=== PATIENT | female | born 1990 | race Caucasian/White ===

== ENCOUNTER → 2021-01-07 | Outpatient (CLI) | payer OTHER ==
--- NOTE | 2021-01-11 00:52 | ECWPNPC ---
PATIENT NAME: LAURA ADHIKARI : 1990 GENDER: FEMALE VISIT DATE: 01/07/2021 DISCHARGE DATE: 01/07/21 1401 VISIT LOCKED DATE TIME: PHYSICIAN: ALEJANDRA DENSON RESOURCE: ALEJANDRA DENSON REASON FOR APPOINTMENT 1. BACK PAIN HISTORY OF PRESENT ILLNESS DEPRESSION SCREENING: PHQ-2 (2015 EDITION) LITTLE INTEREST OR PLEASURE IN DOING THINGS?NOT AT ALL FEELING DOWN, DEPRESSED, OR HOPELESS?NOT AT ALL TOTAL SCORE0 GENERAL: PLEASANT 30-YEAR-OLD FEMALE REFERRED BY PRIMARY CARE, ADRIAN RODRIGUEZ TO EVALUATE CHRONIC TAILBONE PAIN. STATES THIS BEGAN AFTER DELIVERY OF HER CHILD 10 YEARS AGO. STATES IT WAS A TRAUMATIC DELIVERY. HAS BEEN HAVING CONSTANT TAILBONE PAIN OVER THE PAST FEW YEARS. HAS BEEN ON NARCOTIC PAIN MEDICATION FOR SEVERAL YEARS. STATES THAT PRIMARY CARE HAS BEEN WEANING HER OFF OF PAIN MEDICATION UNTIL SHE GETS SEEN BY PAIN MANAGEMENT FACILITY. CURRENTLY TAKING OXYCODONE 5/325 AND USING IT APPROXIMATELY HALF TABLET TO 1 TABLET A DAY AND HAS BEEN OUT OF MEDICATION FOR A FEW DAYS. TODAY WE HAD A LONG DISCUSSION ON DAILY USE OF NARCOTIC PAIN MEDICATIONS. ALSO DISCUSSED INTERVENTIONAL TREATMENT OPTIONS. PATIENT STATES SHE MAY BE RECEPTIVE TO THIS BUT RIGHT NOW IS QUITE FEARFUL OF NEEDLES. - - -. FALL RISK SCREENING: SCREENING : NO FALLS REPORTED IN THE LAST YEAR . PAIN SCREENING: PATIENT HAS A COMPLAINT OF ACUTE OR CHRONIC PAIN :YES LOCATION OF PAIN:UPPER BACK, LOW BACK TAILBONE PAIN INTENSITY OF PAIN (SCALE OF 1 TO 10):8 WHAT DOES YOUR PAIN FEEL LIKE:CONTINOUS, SHARP, STABBING, THROBBING, SHOOTING DURATION:CONTINOUS, CONSTANT, ALL DAY PAIN IS INCREASED BY:ACTIVITIES, PROLONGED STANDING PAIN IS DECREASED BY:OTHERS NOTHING HELPS NURSING NOTE: - - -. PAIN CENTER INTAKE QUESTIONS: DO YOU HAVE A HISTORY OF MRSA? :NO DO YOU TAKE A BLOOD THINNERS? :NO DO YOU HAVE ANY BLEEDING DISORDERS? :NO ANY NEW NUMBNESS OR WEAKNESS IN YOUR LEGS OR ARMS? :NO ANY PACEMAKER,DEFIBRILLATOR, OR DORSAL COLUMN STIMULATOR? :NO DO YOU HAVE ANY RASHES OR OPEN SORES? :NO ARE YOU ALLERGIC TO IV DYE? :NO ARE YOU DIABETIC? :NO ANY NEW PROBLEMS WITH YOUR MEDICATIONS? :NO HAVE YOU RECEIVED A VACCINE IN THE PAST 30 DAYS? :NO DO YOU PLAN TO RECEIVE A VACCINE IN THE NEXT 21 DAYS? :NO DO YOU NEED ANY PRESCRIPTION? :NO DO YOU TAKE ANY IMMUNOSUPPRESSIVE MEDICATIONS? :NO IS THERE A CHANCE YOU COULD BE ? :NO ARE YOU BREAST FEEDING? :NO CURRENT MEDICATIONS TAKING ATENOLOL 25 MG TABLET 1 TABLET ORALLY ONCE A DAY TAKING ESCITALOPRAM OXALATE 20 MG TABLET 1 TABLET ORALLY ONCE A DAY TAKING GABAPENTIN 300 MG CAPSULE 1 CAPSULE ORALLY ONCE A DAY TAKING LACTOBACILLUS - CAPSULE DIRECTED ORALLY 3,000 MMU DAILY TAKING LISINOPRIL 20 MG TABLET 1 TABLET ORALLY ONCE A DAY TAKING LISINOPRIL 5 MG TABLET 1 TABLET ORALLY ONCE A DAY TAKING MELOXICAM 15 MG TABLET 1 TABLET ORALLY ONCE A DAY TAKING MULTIVITAMIN - TABLET 1 TABLET ORALLY ONCE A DAY TAKING OMEPRAZOLE 40 MG CAPSULE DELAYED RELEASE 1 CAPSULE 30 MINUTES BEFORE MORNING MEAL ORALLY ONCE A DAY TAKING OXYCODONE-ACETAMINOPHEN 5-325 MG TABLET 1 TABLET NEEDED ORALLY EVERY 6 HRS NOT-TAKING DESOGESTREL-ETHINYL ESTRADIOL 0.15-0.02/0.01 MG (29/10) TABLET DIRECTED ORALLY MEDICATION LIST REVIEWED AND RECONCILED WITH THE PATIENT PAST MEDICAL HISTORY DEPRESSION ANXIETY DISORDER CHRONIC LOW BACK PAIN GERD- GASTROESOPHAGEAL REFLUX DISEASE SMOKER ALLERGIES NAPROXEN: SICK TO STOMACH - SIDE EFFECTS SURGICAL HISTORY NO SURGICAL HISTORY DOCUMENTED. FAMILY HISTORY FATHER: ALIVE MOTHER: ALIVE, BACK PAIN, HYPERTENSION DAUGHTER(S): ALIVE 1 DAUGHTER(S) - HEALTHY. FAMILY HISTORY- ALCOHOL AND ILLEGAL DRUGS, HIGH BLOOD PRESSURE, TWO HALF SISTER AND ONE HALF BROTHER. SOCIAL HISTORY GENERAL: TOBACCO USE ARE YOU A:CURRENT SMOKER ARE YOU INTERESTED IN QUITTING?THINKING ABOUT QUITTING COUNSELED THE PATIENT ON SMOKING CESSATION, EDUCATION [id number]/30/2021 HOW MANY CIGARETTES A DAY DO YOU SMOKE?6-10 HOW SOON AFTER YOU WAKE UP DO YOU SMOKE YOUR FIRST CIGARETTE?6-30 MIN HOW OFTEN DO YOU SMOKE CIGARETTES?EVERY DAY PATIENT COUNSELED ON THE DANGERS OF TOBACCO USE AND URGED TO QUIT:01/07/2021 LATEX QUESTIONNAIRE LATEX ALLERGY : HAVE YOU EVER DEVELOPED ANY TYPE OF REACTION AFTER HANDLING LATEX PRODUCTS SUCH RUBBER GLOVES, CONDOMS, DIAPHRAGMS, BALLOONS, SOCKS, OR UNDERWEAR?NO LATEX ALLERGY : HAVE YOU EVER DEVELOPED ANY TYPE OF REACTION DURING OR AFTER DENTAL APPOINTMENT, VAGINAL/RECTAL EXAMINATION, SURGICAL PROCEDURE, OR ANY OTHER EXPOSURE?NO LATEX RISK : HAVE YOU EVER HAD ANY DIFFICULTY BREATHING OR HIVES AFTER EATING OR HANDLING ANY FRUITS, OR VEGETABLES; SUCH KIWI, BANANAS, STONE FRUITS, OR CHESTNUTSNO LATEX RISK : DO YOU HAVE A PREVIOUS PERSONAL HISTORY OF MORE THAN NINE SURGERIES, SPINA BIFIDA, OR REPEATED CATHERIZATIONS? NO LATEX RISK : ARE YOU FREQUENTLY EXPOSED TO LATEX PRODUCTS IN YOUR OCCUPATION?NO DATE ASKED : 01/07/2021 ALCOHOL USE: NO. RECREATIONAL DRUG USE DRUG USE?NO LANGUAGE LANGUAGES SPOKEN:DJIBOUTIAN LEARNING BARRIERS / SPECIAL NEEDS BARRIERS TO LEARNING?NO HEARING IMPAIRED?NO VISION IMPAIRED?NO COGNITIVELY IMPAIRED?NO READINESS TO LEARN?YES LEARNING PREFERENCES?NO LEARNING CAPABILITIES PRESENT?YES EMOTIONAL BARRIERS?YES COMMENTS DEPRESSION ,ANXIETY DISORDER SPECIAL DEVICES?NO COLOR PASTE MIXER NEEDED?NO HOSPITALIZATION/MAJOR DIAGNOSTIC PROCEDURE CHILD 2010 REVIEW OF SYSTEMS CONSTITUTIONAL: ANY RECENT FEVER NO . CHILLS NO . WEIGHT CHANGE OF UNKNOWN REASONS NO . GASTROENTEROLOGY: NEW UNEXPLAINABLE CHANGES IN BOWEL CONTROL NO . CONSTIPATION NO . GENITOURINARY: ANY NEW CHANGE IN BLADDER CONTROL? NO . NEUROLOGY: NEW ONSET DIZZINESS OR NEUROLOGICAL CHANGES NOT MENTIONED NO . NEW NUMBNESS OR PAIN PATTERNS NOT MENTIONED AND PERTINENT TO TODAY'S VISIT NO . CARDIOLOGY: NEW CHEST PRESSURE NO . PATIENT DENIES NO . RESPIRATORY: UNEXPLAINABLE COUGH NO . NEW SHORTNESS OF BREATH NO . VITAL SIGNS WT 113 LBS, HT 5'4, BMI 22.07 INDEX, BP 156/81 MM HG, HR 82 /MIN, RR 18 /MIN, TEMP 97.6 F, OXYGEN SAT % 100%, SAFE IN ENV? (Y/N) YEST.EVE SUMNER. EXAMINATION GENERAL EXAMINATION: GENERALAPPERAS UNCOMFORTABLE. PSYCHAPPROPRIATE MOOD AND AFFECT . NECK:NO LYMPHADENOPATHY, SUPPLE. LUNGS:CLEAR TO AUSCULTATION BILATERALLY, NO WHEEZES, RHONCHI, RALES. HEART:NO MURMURS, REGULAR RATE AND RHYTHM. MUSCULOSKELETAL:NORMAL RANGE OF MOTION MUSCLE STRENGTH TESTING 5/5 BILATERAL UPPER/LOWER EXTREMITIES. LUMBAR:MARKED TENDERNESS NOTED OVER COCCYX AND LUMBAR AXIS.. NEUROLOGIC EXAM:NORMAL SENSATION TO LIGHT TOUCH UPPER AND LOWER EXTREMITIES.. ASSESSMENTS COCCYDYNIA - M53.3 (PRIMARY) TREATMENT COCCYDYNIA REFILL GABAPENTIN CAPSULE, 300 MG, 1 CAPSULE, ORALLY, ONCE A DAY, 30 DAY(S), 30, REFILLS 2 START OXYCODONE-ACETAMINOPHEN TABLET, 5-325 MG, 1 TAB, ORALLY, BID MDD2, 30 DAYS, 60 NOTES: TODAY I HAVE AGREED TO TAKE OVER MEDICATION MANAGEMENT AND TREATMENT FOR CHRONIC PAIN. PATIENT SIGNED A NARCOTIC AGREEMENT WITH US TODAY. SHE IS AWARE OUR GOAL IS NOT TO BE ON DAILY NARCOTIC PAIN MEDICATIONS AND TO CONSIDER ALTERNATIVES I.E. SACROCOCCYGEAL BLOCK WITH IV SEDATION IN THE FUTURE. PATIENT AGREES WITH THE PLAN. SHE WAS GIVEN TIME TO VOICE QUESTIONS AND CONCERNS. , ISTOP REGISTRY REVIEWED AND DEMONSTRATES COMPLLIANCE. , RISKS OF NARCOTIC/OPIOD MEDICATIONS INCLUDES BUT IS NOT LIMITED TO RISK OF DEPENDANCE/DEVELOPMENT OF ADDICTION, MOOD DISTURBANCE AND DEPRESSION, OSTEOPOROSIS, HORMONAL AND LABIDAL CHANGES, RESPIRATORY DEPRESSION AND . PATIENT IS ADVISED NOT TO DRIVE OR DRINK ALCOHOL WHILE ON THESE MEDICATIONS , [facility] NARCOTIC AGREEMENT WAS REVIEWED AND SIGNED TODAY BY THE PATIENT. SEE ATTACHED DOCUMENT FOR FULL DETAILS; SPECIFIC ISSUES WERE REVIEWED: 1) KEEP PAIN MEDS IN THEIR ORIGINAL BOTTLES AND ANY WEEKLY PLANNERS ARE TO BE BROUGHT TO THE PAIN CENTER AT EVERY VISIT. 2) THE PATIENT IS NOT TO INCREASE DOSING OR TIMING OF THEIR PAIN MEDICATION WITHOUT SPECIFIC DIRECTION OF THEIR PAIN CENTERPROVIDER (NOT ER OR OTHER PROVIDERS). 3) ALL PAIN MEDS ARE TO BE KEPT SECURED, IN A LOCKED BOX. 4) NO PAIN MEDS ARE TO BE SHARED WITH ANY OTHER PERSON FOR ANY REASON. 5) NO PAIN MEDS MAY BE TAKEN FROM ANY FRIENDS OR RELATIVES FOR ANY REASON 6) NO MEDS OR SUBSTANCES WHICH ARE NOT LEGAL ARE TO BE USED- NO MARIJUANA, NO COCAINE, AMPHETAMINES, HEROIN, OR OTHERS ARE EVER TO BE USED. 7)URINE TESTING IS DONE TO ACCOUNT FOR MEDS AND SUBSTANCES BEING TAKEN AND WILL BE DONE RANDOMLY. PROCEDURE CODES FA211 ESTABILISHED PATIENT [facility] CHARGE DISPOSITION & COMMUNICATION FOLLOW UP 6 WEEKS (REASON: MEDICATION MANAGEMENT, URINE TOXICOLOGY, PILL COUNT/ID) ELECTRONICALLY SIGNED BY ADRIAN POTTER ON 01/10/2021 AT 03:57 PM EDT DISCLAIMER : THIS IS A VISIT SUMMARY EXTRACTED FROM THE [employer] CHART. IT IS NOT A COPY OF THE [employer] PROGRESS NOTE. JESSICA
== END ==
LOC: M PAIN 13:00
PROVIDERS: ATTEND Nurse Practitioner Family
DX: M53.3 Sacrococcygeal disorders, not elsewhere classified (principal); G89.29 Other chronic pain; K21.9 Gastro-esophageal reflux disease without esophagitis; F17.210 Nicotine dependence, cigarettes, uncomplicated; Z86.59 Personal history of other mental and behavioral disorders; Z88.6 Allergy status to analgesic agent; Z79.899 Other long term (current) drug therapy